=== PATIENT | female | born 1960 | race Two or more races ===

== ENCOUNTER 2022-01-05 19:24 | Emergency (ER) | payer OTHER ==
[~2022-01-05] VITALS: Ht 170.2 cm; Wt 135.2 kg
[2022-01-05] MEDS ORDERED: MORPHINE SULFATE INJ 2 MG/ML DISP.SYRIN IM ONE (20:00)
[2022-01-05] MEDS ORDERED: ONDANSETRON 4 MG TAB.RAPDIS SL ONE (20:00)
[2022-01-05] MEDS ORDERED: MORPHINE SULFATE INJ 2 MG/ML DISP.SYRIN ONE (20:02)
[2022-01-05] MEDS ORDERED: ONDANSETRON 4 MG TAB.RAPDIS ONE (20:03)
--- NOTE | 2022-01-05 20:50 | NUR ---
PT/ A/O X3 GLF C/O LEFT SHOULDER,ARM, LEFT KNEE PAIN 06/10
[2022-01-05] MEDS ORDERED: HYDROCODONE/APAP 10/325MG TABLET ONE (21:26)
[2022-01-05] MEDS ORDERED: HYDROCODONE/APAP 10/325MG TABLET PO ONE (21:30)
[2022-01-05] MEDS ORDERED: OXYC-128 PO ×3 (21:57→22:10)
--- NOTE | 2022-01-05 22:41 | NUR ---
PT DISCHARGED AWARE TO F/U WITH KP TOMORROW
[2022-01-05 22:44] VITALS: BP 108/70
== END 2022-01-05 22:45 | disposition home or self-care (01) ==
LOC: ER 19:28
DX: S42.202A Unspecified fracture of upper end of left humerus, initial encounter for closed fracture (principal); E66.01 Morbid (severe) obesity due to excess calories; Z68.42 Body mass index [BMI] 45.0-49.9, adult; I10 Essential (primary) hypertension; E11.9 Type 2 diabetes mellitus without complications; W19.XXXA Unspecified fall, initial encounter; Y93.89 Activity, other specified; Y92.89 Other specified places as the place of occurrence of the external cause; Y99.8 Other external cause status
CPT/HCPCS: 73020; 73060; 96372; 99284; J2270; Q0162